=== PATIENT | male | born 1960 | race Caucasian/White ===

== ENCOUNTER 2023-10-11 07:34 | Outpatient (CLI) | payer MEDICARE, SELFPAY ==
--- NOTE | ~2023-10-11 | CT_ITS ---
CT of the Abdomen and Pelvis: Indication: Malignant neoplasm of prostate cancer Technique: 2.5 mm axial scans were obtained through the abdomen and pelvis following intravenous adm inistration of 100 cc of Omnipaque 350. Dose reduction technique was used on this scan by utilizing a utomated exposure control and iterative reconstruction technique. The dose-length product (DLP) was 1 526.74 mGy-cm. Findings: Scans through the lung bases demonstrate probable minimal bibasilar chronic interstitial c hange versus atelectatic change. There is diffuse fatty infiltration of liver. The spleen, pancreas, gallbladder, adrenals and kidneys are within normal limits. There is a 3.3 cm saccular aneurysm from the infrarenal abdominal aorta (a xial image 95). No lymphadenopathy. No bowel obstruction or bowel wall thickening. There is no evidence to suggest acute appendicitis. Wi de necked fat-containing umbilical hernia present. Images through the pelvis were performed. Urinary bladder unremarkable. No gross pelvic mass seen. No ascites. No suspicious osseous lesion seen. Intraosseous hemangioma noted at T12. Impression: No CT evidence for metastatic disease. Diffuse fatty infiltration of the liver. 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 Wide necked fat-containing umbilical hernia. Reviewed, dictated and finalized at location . 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 Diffuse fatty infiltration of the liver. 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 Wide necked fat-containing umbilical hernia.
[2023-10-11 07:57] LABS: Estimated Glomerular Filt Rate > 60
== END 2023-10-11 07:35 | disposition home or self-care (01) ==
PROVIDERS: PCP Family Medicine; Visit Provider Urology
DX: K76.0 Fatty (change of) liver, not elsewhere classified (principal); I71.43 Infrarenal abdominal aortic aneurysm, without rupture; K42.9 Umbilical hernia without obstruction or gangrene
CPT/HCPCS: 74177; Q9967

== ENCOUNTER 2023-10-14 08:29 | Outpatient (CLI) | payer MEDICARE, SELFPAY ==
--- NOTE | ~2023-10-14 | NM_ITS ---
EXAMINATION: NM bone scan whole body DATE: 10/14/2023 12:26 INDICATION: Prostate cancer with hormone sensitive status TECHNIQUE: 24.9 mCi Tc-99m HDP was administered intravenously. Delayed whole-body scintigrams were o btained. COMPARISON: CT abdomen pelvis dated 10/11/2023 FINDINGS: Likely degenerative joint centered increased uptake at the bilateral acromioclavicular and sternoclav icular joints, the medial compartment of the left knee and multiple joints at the bilateral hands. Ad ditional mild uptake associated with prominent left-sided endplate osteophytes at T8-T9. No other lou picious foci of abnormal bone uptake to suggest osseous metastatic disease. IMPRESSION: 1. No evident osseous metastatic disease. Reviewed, dictated and finalized at location A. 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
== END 2023-10-14 08:30 | disposition home or self-care (01) ==
PROVIDERS: PCP Family Medicine; Visit Provider Urology
DX: C61 Malignant neoplasm of prostate (principal); Z19.1 Hormone sensitive malignancy status
CPT/HCPCS: 78306; A9503